=== PATIENT | male | born 1990 | race Caucasian/White ===

== ENCOUNTER 2018-10-24 15:09 | Inpatient (IN) | payer MEDICAID ==
--- NOTE | 2018-10-24 15:52 | EDPHY ---
H & P Time Seen by Provider: 10/24/18 15:19 HPI/ROS: Chief complaint. Not feeling well HPI. 28-year-old male presents with complaint of several days of not feeling well. He is moving from [place] to [place] and transferring dialysis. Patient has been receiving dialysis since just before . The patient has missed his last 4 treatments. He was previously a Wednesday, , Wednesday dialysis schedule however had he has missed these treatments including the previous Wednesday. He feels slightly nauseated. Somewhat achy, some chills. Slight shortness of breath yesterday but not today. No chest pain or abdominal pain. As he is transferring his dialysis the dialysis treatment center called him and said he needs a physical evaluation prior to them doing dialysis and recommended he come to the emergency department. He has a history of hypertension and he tells me he has been compliant with his blood pressure medication. Blood pressure normally with his medication is 170/100. Patient has a chest catheter for dialysis currently while he is awaiting his right arm AV fistula to mature ROS 10 systems were reviewed and negative with the exception of the elements mentioned in the history of present illness Past Medical/Surgical History: Hypertension, hep C, renal failure Social History: Single, daily smoker, no alcohol Smoking Status: Current every day smoker Physical Exam: General Appearance: Alert well-developed male mild distress vital signs significant for initial blood pressure 224/140 and then on repeat 211/129 Eyes: Pupils equal and round no pallor or injection. ENT, Mouth: Mucous membranes are moist. Respiratory: There are no retractions, lungs are clear to auscultation. Cardiovascular: Regular rate and rhythm. Gastrointestinal: Abdomen is soft and nontender, no masses, bowel sounds normal. Neurological: Awake and alert, sensory and motor exams grossly normal. Skin: Warm and dry, no rashes. Musculoskeletal: Neck is supple nontender. Extremities symmetrical, full range of motion. Psychiatric: Patient is oriented X 3, there is no agitation. Constitutional: Initial Vital Signs Temperature (C) 36.7 C 10/24/18 15:14 Heart Rate 96 10/24/18 15:14 Respiratory Rate 18 10/24/18 15:14 Blood Pressure 224/140 H 10/24/18 15:14 O2 Sat (%) 99 10/24/18 15:14 O2 Delivery Mode Room Air Allergies/Adverse Reactions: No Known Allergies Allergy (Unverified 10/24/18 15:12) Home Medications: Medication Instructions Recorded Amlodipine Besylate 10/24/18 Carvedilol 10/24/18 Lasix 10/24/18 Medical Decision Making - Diagnostics EKG Interpretation: EKG interpreted by me shows sinus tachycardia normal interval and axis. QRS shows LVH by voltage. Peaked T-waves are noted in the precordial leads. No arrhythmia. No significant ST elevation or depression. The rate is 105 No previous EKGs for comparison Imaging Results: Imaging Impressions Chest X-Ray 10/24/18 16:24 Impression: 1. Findings suggestive of fluid overload. 2. Central vascular catheter tip in the upper right atrium. No pneumothorax. Chest x-ray shows volume overload. No pneumonia Procedures: IV normal saline. IV hydralazine. Amlodipine 10 mg orally for blood pressure control ED Course/Re-evaluation: I consulted discussed the case with Dr. Rossy Pulliam, injection molding technician who recommended the blood pressure control meds that were given. She will see him in the hospital tonight Blood pressure on serial exams remains Around 211/134 I have sat down 3 times with the patient recommending admission for blood pressure control and dialysis. He finally does agree to admission. I consulted discussed the case with , hospitalist, who agrees to the admission Differential Diagnosis: Patient has end-stage renal disease requiring dialysis. He has missed his last for dialysis appointments. I certainly considered hyperkalemia. His bicarb is somewhat low at 17. Chest x-ray shows volume overload. Blood pressure is poorly controlled despite hydralazine and amlodipine. Plan is admission for blood pressure control and dialysis in the morning. Currently the patient has no headache or visual change or chest pain. No evidence for end-organ failure indicating hypertensive emergency - Data Points Laboratory Results: Laboratory Results 10/24/18 16:29 10/24/18 16:29 10/24/18 10/24/18 10/24/18 16:50 16:39 16:29 WBC RBC Hgb POC Hgb 10.9 gm/dL L gm/dL (13.7-17.5) Hct POC Hct 32 % L % (40-51) MCV MCH MCHC RDW Plt Count MPV Neut % (Auto) Lymph % (Auto) Stafford % (Auto) Eos % (Auto) Baso % (Auto) Nucleat RBC Rel Count Absolute Neuts (auto) Absolute Lymphs (auto) Absolute Monos (auto) Absolute Eos (auto) Absolute Basos (auto) Absolute Nucleated RBC Immature Gran % Immature Gran # POC Sodium 138 mEq/L mEq/L (135-145) Sodium 137 mEq/L mEq/L (135-145) POC Potassium 4.9 mEq/L mEq/L (3.3-5.0) Potassium 5.1 mEq/L mEq/L (3.5-5.2) POC Chloride 105 mEq/L mEq/L (97-110) Chloride 102 mEq/L mEq/L (97-110) Carbon Dioxide 17 mEq/l L mEq/l (22-31) POC Total CO2 17 mEq/L L mEq/L (22-31) Anion Gap 18 mEq/L H mEq/L (6-14) POC BUN 99 mg/dL H mg/dL (7-23) BUN 99 mg/dL H mg/dL (7-23) Creatinine 15.8 mg/dL H* mg/dL (0.7-1.3) POC Creatinine 16.7 mg/dL H* mg/dL (0.7-1.3) Estimated GFR 4 Glucose 80 mg/dL mg/dL (70-100) POC Glucose 76 mg/dL mg/dL (70-100) Calcium 8.6 mg/dL mg/dL (8.5-10.4) POC Troponin I 0.03 ng/mL ng/mL (0.00-0.08) 10/24/18 16:29 WBC 10.76 10^3/uL H 10^3/uL (3.80-9.50) RBC 3.56 10^6/uL L 10^6/uL (4.40-6.38) Hgb 10.8 g/dL L g/dL (13.7-17.5) POC Hgb Hct 31.4 % L % (40.0-51.0) POC Hct MCV 88.2 fL fL (81.5-99.8) MCH 30.3 pg pg (27.9-34.1) MCHC 34.4 g/dL g/dL (32.4-36.7) RDW 13.1 % % (11.5-15.2) Plt Count 230 10^3/uL 10^3/uL (150-400) MPV 8.6 fL L fL (8.7-11.7) Neut % (Auto) 55.8 % % (39.3-74.2) Lymph % (Auto) 21.9 % % (15.0-45.0) Stafford % (Auto) 7.8 % % (4.5-13.0) Eos % (Auto) 13.0 % H % (0.6-7.6) Baso % (Auto) 1.1 % % (0.3-1.7) Nucleat RBC Rel Count 0.0 % % (0.0-0.2) Absolute Neuts (auto) 6.00 10^3/uL 10^3/uL (1.70-6.50) Absolute Lymphs (auto) 2.36 10^3/uL 10^3/uL (1.00-3.00) Absolute Monos (auto) 0.84 10^3/uL H 10^3/uL (0.30-0.80) Absolute Eos (auto) 1.40 10^3/uL H 10^3/uL (0.03-0.40) Absolute Basos (auto) 0.12 10^3/uL H 10^3/uL (0.02-0.10) Absolute Nucleated RBC 0.00 10^3/uL 10^3/uL (0-0.01) Immature Gran % 0.4 % % (0.0-1.1) Immature Gran # 0.04 10^3/uL 10^3/uL (0.00-0.10) POC Sodium Sodium POC Potassium Potassium POC Chloride Chloride Carbon Dioxide POC Total CO2 Anion Gap POC BUN BUN Creatinine POC Creatinine Estimated GFR Glucose POC Glucose Calcium POC Troponin I Medications Given: Discontinued Medications Amlodipine Besylate (Norvasc) 10 mg PO EDNOW ONE Stop: 10/24/18 17:37 Last Admin: 10/24/18 17:53 Dose: 10 mg Hydralazine HCl (Apresoline) 10 mg IVP EDNOW ONE Stop: 10/24/18 17:37 Last Admin: 10/24/18 17:53 Dose: 10 mg Point of Care Test Results: Chemistry 10/24/18 10/24/18 16:50 16:39 POC Sodium 138 mEq/L mEq/L (135-145) POC Potassium 4.9 mEq/L mEq/L (3.3-5.0) POC Chloride 105 mEq/L mEq/L (97-110) POC Total CO2 17 mEq/L L mEq/L (22-31) POC BUN 99 mg/dL H mg/dL (7-23) POC Creatinine 16.7 mg/dL H* mg/dL (0.7-1.3) POC Glucose 76 mg/dL mg/dL (70-100) POC Troponin I 0.03 ng/mL ng/mL (0.00-0.08) ISTAT H&H 10/24/18 16:39 POC Hgb 10.9 gm/dL L gm/dL (13.7-17.5) POC Hct 32 % L % (40-51) Departure - Departure Disposition: [facility] Inpatient Acute Clinical Impression: End stage renal disease Hypertension Qualifiers: Hypertension type: renovascular hypertension Qualified Code(s): I15.0 - Renovascular hypertension Condition: Fair Referrals: NONE *PRIMARY CARE P,. [Primary Care Provider] - As per Instructions
[2018-10-24 16:39] LABS: PLATELET COUNT 230 10^3/uL (150-400)
[2018-10-24] MEDS ORDERED: hydrALAZINE 20 MG/ML VIAL IVP ONE (17:36)
[2018-10-24] MEDS ORDERED: amLODIPine BESYLATE 5 MG TAB PO ONE (17:36)
[2018-10-24] MEDS ORDERED: ONDANSETRON 4 MG/2 ML VIAL ONE (18:49)
[2018-10-24] MEDS ORDERED: LABETALOL HCL 5 MG/ML 20 ML MDV IVP ONE (18:50)
[2018-10-24] MEDS ORDERED: ONDANSETRON 4 MG/2 ML VIAL IVP ONE (18:52)
--- NOTE | 2018-10-24 18:57 | SOAPPROG ---
[facility] Progress Note Assessment/Plan: Assessment: renal consult-- see dictation # [id number] plan on HD tomorrow Work on BP control-- gradual lowering, no more than 25% in first 24 hours (pt has been off his home meds) Ok to give IV Lasix if needed overnight for increasing O2 needs as still makes urine-- he is on RA currently need to discuss with case management outpt HD arrangements in am Rossy Chapin MD [facility] pager [phone] 10/24/18 19:35 Objective: Vital Signs Temp Pulse Resp BP Pulse Ox 36.6 C 117 H 22 H 220/137 H 97 10/24/18 18:07 10/24/18 18:46 10/24/18 18:46 10/24/18 18:46 10/24/18 18:46 ICD10 Worksheet Patient Problems: Problems Problem Status Onset End stage renal disease Acute Hypertension Acute
--- NOTE | 2018-10-24 20:05 | GCON ---
[f rep st] CONSULTATION INPATIENT NEPHROLOGY CONSULTATION DATE OF CONSULTATION: 10/24/2018 REFERRING PHYSICIAN: Mansoor Asif MD REASON FOR CONSULTATION: End-stage renal disease, need for dialysis. HISTORY OF PRESENT ILLNESS: The patient is a 28-year-old man with a history of end-stage renal disea se secondary to IgA nephropathy. He presents to the emergency room complaining of several days of ge neralized malaise and nausea. He has recently been on dialysis on Tuesdays, , and Saturdays at [facility]. His last treatment was a week ago. He notes that this is due to an attempt to tr ansfer units to [facility], as he has recently moved here. Given that he had missed over a week of dialysis, the outpatient unit directed him to the emergency room. He still makes urine and denies any difficulty voiding or dysuria or hematuria. He notes some mild dyspnea with exertion but none a t rest. No chest pain. He denies any fevers. He admits that he has not been taking his blood press ure medicine regularly at home as he often gets confused. His blood pressure on arrival was 224/140. After a dose of IV hydralazine, he was in the 190s when I saw him. He reports that he has been on dialysis since July. He recently had a fistula placed about a month ago. He is unable to tell m pippa the name of his outpatient trimmer operator. He has not been evaluated for transplant up to this point . REVIEW OF SYSTEMS: GENERAL: No fevers or chills. He has had generalized malaise and poor oral inta ke. HEENT: No sore throat. PULMONARY: He has had some shortness of breath with exertion. Denies any at rest. No cough. CARDIAC: No chest pain. Does have some mild lower extremity edema. GI: S ome nausea, 1 episode of vomiting. No diarrhea. : He still makes urine. Denies any dysuria or h ematuria. SKIN: No rash. ENDOCRINE: Denies any history of diabetes, no polyuria or polydipsia. N EUROLOGIC: Some generalized weakness but no focal numbness or weakness. No loss of consciousness. HEM: No bleeding. PAST MEDICAL HISTORY: 1. End-stage renal disease secondary to IgA nephropathy. He is on dialysis as of July 2018, pre viously at [facility] on a Wednesday, , Wednesday schedule. He does have a right upper extre mity AV fistula that was placed about a month ago that has not matured. 2. Hypertension with a history of poor control. 3. History of tobacco abuse. SOCIAL HISTORY: He recently moved from [place] to [place], and he has an apartment here. He denies a ny alcohol use. He does admit to smoking cigarettes and marijuana, but denies any other drugs. FAMILY HISTORY: He is adopted and does not know any details of his history in terms of kidney diseas e. OUTPATIENT MEDICATIONS: He is not able to name the blood pressure medications or phosphorus binders that he is supposed to be taking. PHYSICAL EXAMINATION: VITAL SIGNS: His temperature is 36.6. His blood pressure is 195/126, pulse 1 02, saturating 94% on room air. GENERAL: He is in no acute distress, appears comfortable, lying in bed flat, not tachypneic on room air. HEENT: Mucous membranes are moist. There is no scleral icter us. NECK: Supple. LUNGS: Clear to auscultation bilaterally. CARDIOVASCULAR: Regular rate and rh ythm. No rub. ABDOMEN: Soft, nontender. Normal bowel sounds. No tense ascites. EXTREMITIES: Tr shauna lower extremity edema. He does have a right upper extremity fistula with good thrill and bruit, but is too small to cannulate. ACCESS: He has a right IJ tunnel dialysis catheter without a dressin g on. The exit site looks okay. SKIN: No obvious rash. He does have multiple tattoos. NEUROLOGIC : Alert and oriented x3. LABORATORY: Sodium 138, potassium 4.2, chloride 105, bicarb 17, BUN 99, creatinine 16.7, glucose 76. Troponin 0.03. White blood cell count 10.76, hemoglobin 10.9, hematocrit 32, platelets 230. IMAGING: Chest x-ray suggests some pulmonary vascular prominence concerning for edema, no consolidat ion. ASSESSMENT AND PLAN: Mr. Chin is a 28-year-old man with a history of end-stage renal disease secon madelaine to IgA nephropathy and hypertension who now presents with generalized malaise, shortness of jamarcus th and nausea after missing dialysis for least a week: 1. End-stage renal disease. Etiology appears to be IgA nephropathy and he has been on dialysis [facility] e July 2018. Unfortunately, he has missed dialysis for the past week in his attempt to transitio n to the [facility] Unit. We will admit him to arrange for dialysis in the morning. There are n o acute indications this evening. I explained to him the severity of missing dialysis and the need t o ensure we have his outpatient arrangements made before we can discharge him. We will be in touch w ith the outpatient dialysis unit in the morning to confirm this. He does make urine output still and would consider giving him a dose of Lasix if there is any concern for increasing oxygen needs; at th e time I saw him, he was on room air. 2. Hypertension urgency. His blood pressure was in the 220s when he presented to the emergency room . He does admit to missing his medications. He also likely has a volume component, given that he storey s missed dialysis for a week. We have started on some IV hydralazine and will restart his oral medic ations with a goal lowering of no more than 25% in the first 24 hours. At this point, I do not think he requires ICU admission for nicardipine drip, but we need to consider this if his blood pressure p roves difficult to control. 3. Anemia of chronic kidney disease. His hemoglobin is at goal. I will hold on erythropoietin supp lementation. 4. 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 I will check a phosphorus level with his morning labs and ensure he is on a renal diet when he is taking intake. 5. History of hepatitis C. Unclear if he has undergone any treatment or details of this. Will need to clarify this in the morning. Thank you very much for the consultation. I have discussed my [facility]. We will continue to follow up. Please do not hesitate to call with any questions or concern s. /[id number]/MODL
[2018-10-24 20:53] LABS: HEPATITIS B CORE AB IGM NEGATIVE (NEGATIVE); HEPATITIS B SURFACE ANTIGEN NEGATIVE (NEGATIVE)
[2018-10-24] MEDS ORDERED: HYDROmorphONE/DILAUDID 1 MG/ML INJ IVP PRN (21:37)
[2018-10-24] MEDS ORDERED: LORazepam 2 MG/ML INJ IVP PRN (21:37)
[2018-10-24] MEDS ORDERED: ACETAMINOPHEN 325 MG TAB PO PRN (21:37)
[2018-10-24] MEDS ORDERED: oxyCODONE IR 5 MG TAB PO PRN (21:37)
[2018-10-24] MEDS ORDERED: HYDROCODONE/APAP 5/325 TAB PO PRN (21:37)
[2018-10-24] MEDS ORDERED: ONDANSETRON DISINTEGRATING 4 MG TAB PO PRN (21:37)
[2018-10-24] MEDS ORDERED: NICOTINE POLACRILEX 2 MG GUM B PRN (21:37)
[2018-10-24] MEDS ORDERED: hydrALAZINE 20 MG/ML VIAL IVP PRN (21:42)
--- NOTE | 2018-10-24 21:49 | PDGENHP ---
History and Physical - Chief Complaint feeling ill/no HD x 4 days - History of Present Illness 28 yo M with PMH of ESRD 2/2 IgA nephropathy as well as schizoaffective disorder presenting with feeling exhausted/ill/achy all over in the setting of missing 4 scheduled dialysis sessions. Patient had been living in [place], he is a patient of the [place], and has recently moved to the [place] area. In the meantime he is looking at getting his dialysis location changed to [place], but has not done that quite yet. He generally gets Wednesday, , Wednesday HD. He states he has not been taking his BP medications regularly and that in general when he is getting dialysis as scheduled his BP runs around systolics of 170 or higher. He does make urine and has not noticed any change in his urination, no decreased output or other symptoms. He also has a history of schizoaffective disorder and notes that due to issues making an appointment to see psychiatry he has been off of medications for this for about a year. He states he has constant visual and auditory hallucinations both on and off of medications so he is not in a huge huston to get back on meds and does not remember what meds he had been on in the past. Along with this he struggles with depression but denies that being worse than usual currently. He denies any other issues including fever, chills, sob, chest pain. History Information - Allergies/Home Medication List Allergies/Adverse Reactions: No Known Allergies Allergy (Unverified 10/24/18 15:12) Home Medications: Amlodipine Besylate 10/24/18 [Last Taken Unknown] Carvedilol 10/24/18 [Last Taken Unknown] Lasix 10/24/18 [Last Taken Unknown] I have personally reviewed and updated: family history, medical history, social history, surgical history - Past Medical History ESRD (2/2 IgA nephropathy), hypertension, psychiatric history (schizoaffective do) - Surgical History Additional surgical history: AV fistula formation - Family History Additional family history: unknown - Social History Smoking Status: Current every day smoker Alcohol Use: None Drug Use: Marijuana Additional social history: recently [place] [facility] Review of Systems Review of Systems: ROS: 10pt was reviewed & negative except for what was stated in HPI & below Physical Exam Physical Exam: Temp Pulse Resp BP Pulse Ox 36.8 C 103 H 17 190/120 H 98 10/24/18 20:50 10/24/18 20:50 10/24/18 20:50 10/24/18 20:50 10/24/18 20:50 Constitutional: appears nourished, uncomfortable Eyes: PERRL, anicteric sclera Ears, Nose, Mouth, Throat: moist mucous membranes, hearing normal, poor dentition Cardiovascular: regular rate and rhythym, no murmur, rub, or gallop, No edema Respiratory: no respiratory distress, no rales or rhonchi, clear to auscultation Gastrointestinal: normoactive bowel sounds, soft, non-tender abdomen Genitourinary: no bladder tenderness Skin: warm, normal color Musculoskeletal: full muscle strength Neurologic: AAOx3 Psychiatric: interacting appropriately, not anxious, not encephalopathic Lab Data & Imaging Review 10/24/18 16:29 10/24/18 16:29 WBC 10.76 10^3/uL (3.80-9.50) H 10/24/18 16:29 RBC 3.56 10^6/uL (4.40-6.38) L 10/24/18 16:29 Hgb 10.8 g/dL (13.7-17.5) L 10/24/18 16:29 POC Hgb 10.9 gm/dL (13.7-17.5) L 10/24/18 16:39 Hct 31.4 % (40.0-51.0) L 10/24/18 16:29 POC Hct 32 % (40-51) L 10/24/18 16:39 MCV 88.2 fL (81.5-99.8) 10/24/18 16:29 MCH 30.3 pg (27.9-34.1) 10/24/18 16:29 MCHC 34.4 g/dL (32.4-36.7) 10/24/18 16:29 RDW 13.1 % (11.5-15.2) 10/24/18 16:29 Plt Count 230 10^3/uL (150-400) 10/24/18 16:29 MPV 8.6 fL (8.7-11.7) L 10/24/18 16:29 Neut % (Auto) 55.8 % (39.3-74.2) 10/24/18 16: Lymph % (Auto) 21.9 % (15.0-45.0) 10/24/18 16: Izard % (Auto) 7.8 % (4.5-13.0) 10/24/18 16: Eos % (Auto) 13.0 % (0.6-7.6) H 10/24/18 16: Baso % (Auto) 1.1 % (0.3-1.7) 10/24/18 16: Nucleat RBC Rel Count 0.0 % (0.0-0.2) 10/24/18 16: Absolute Neuts (auto) 6.00 10^3/uL (1.70-6.50) 10/24/18 16: Absolute Lymphs (auto) 2.36 10^3/uL (1.00-3.00) 10/24/18 16: Absolute Monos (auto) 0.84 10^3/uL (0.30-0.80) H 10/24/18 16:29 Absolute Eos (auto) 1.40 10^3/uL (0.03-0.40) H 10/24/18 16: Absolute Basos (auto) 0.12 10^3/uL (0.02-0.10) H 10/24/18 16: Absolute Nucleated RBC 0.00 10^3/uL (0-0.01) 10/24/18 16: Immature Gran % 0.4 % (0.0-1.1) 10/24/18 16: Immature Gran # 0.04 10^3/uL (0.00-0.10) 10/24/18 16:29 POC Sodium 138 mEq/L (135-145) 10/24/18 16:39 Sodium 137 mEq/L (135-145) 10/24/18 16:29 POC Potassium 4.9 mEq/L (3.3-5.0) 10/24/18 16:39 Potassium 5.1 mEq/L (3.5-5.2) 10/24/18 16:29 POC Chloride 105 mEq/L (97-110) 10/24/18 16: Chloride 102 mEq/L (97-110) 10/24/18 16:29 Carbon Dioxide 17 mEq/l (22-31) L 10/24/18 16:29 POC Total CO2 17 mEq/L (22-31) L 10/24/18 16:39 Anion Gap 18 mEq/L (6-14) H 10/24/18 16:29 POC BUN 99 mg/dL (7-23) H 10/24/18 16:39 BUN 99 mg/dL (7-23) H 10/24/18 16:29 Creatinine 15.8 mg/dL (0.7-1.3) H* 10/24/18 16:29 POC Creatinine 16.7 mg/dL (0.7-1.3) H* 10/24/18 16:39 Estimated GFR 4 10/24/18 16:29 Glucose 80 mg/dL (70-100) 10/24/18 16:29 POC Glucose 76 mg/dL (70-100) 10/24/18 16:39 Calcium 8.6 mg/dL (8.5-10.4) 10/24/18 16:29 POC Troponin I 0.03 ng/mL (0.00-0.08) 10/24/18 16:50 Hep Bs Antigen NEGATIVE (NEGATIVE) 10/24/18 16:29 Hep B Core IgM Ab NEGATIVE (NEGATIVE) 10/24/18 16:29 Visualized and Interpreted Chest x-ray results: Yes Chest X-Ray results: other (suggestsive of fluid overload) Visualized and Interpreted EKG results: Yes EKG additional interpertation: sinus tachycardia Assessment & Plan Assessment: End stage renal disease (Acute) Hypertension (Acute) 28 yo M with PMH of ESRD 2/2 IgA nephropathy on chronic HD presenting with uncontrolled HTN, generalized malaise and aches and pains after missing HD x 4 # ESRD: patient missed HD x 4 due to moving, does have some mild lower extermity edema and e/o fluid overload on CXR but not hypoxic and electrolytes are not concerning currently. Renal consulted, plan is for HD in the am. # Hypertensive urgency: in patient with chronically uncontrolled htn, he states he is never below systolics of 170, arrived with BP 224/140 without e/o end organ dysfunction related to this. Given hydralazine and labetalol per renal recs and has trended slightly down, will have a goal of BP 180-190 overnight. Will likely improve more with HD, will resume home meds when confirmed # schizoaffective disorder: patient notes he has been off of medications for a year and although he has chronic hallucinations and issues with depression but does not feel he is in crisis around it and was not sure if he would be willing to talk to our psychiatrist but will consider. Looks like he may have some EPS sxs related to prior antipsychotic use with continued mouth movements noted on exam. # tobacco use: nicotine patch, nicotine gum # IP status, will likely require > 48 hours stay for eval/mgmt of above Patient new to my care. Old records reviewed and summarized as above. Care plan reviewed with ED doctor including plans for renal consult.
[2018-10-24] MEDS: NICOTINE 21 MG/24 HR PATCH TD SCH (22:03)
--- NOTE | 2018-10-24 23:26 | CPEKG ---
Test Reason : OPEN Blood Pressure : / mmHG Vent. Rate : 105 BPM Atrial Rate : 105 BPM P-R Int : 159 ms QRS Dur : 096 ms QT Int : 359 ms P-R-T Axes : 044 021 031 degrees QTc Int : 475 ms Sinus tachycardia Probable left atrial enlargement Borderline prolonged QT interval Confirmed by Mansoor Asif ([id number]) on 10/24/2018 11:26:13 PM Referred By: Mansoor Asif Confirmed By:Mansoor Asif
[2018-10-25] MEDS: ONDANSETRON 4 MG/2 ML VIAL IVP PRN ×2 (00:05→15:36)
[2018-10-25] MEDS: PROMETHAZINE HCL 25 MG/ML INJ IVP PRN ×2 (00:37→08:49)
[2018-10-25] MEDS: LORazepam 0.5 MG TAB PO PRN (02:05)
[2018-10-25 04:30] LABS: PLATELET COUNT 247 10^3/uL (150-400)
--- NOTE | 2018-10-25 10:22 | SOAPPROG ---
SOAP Progress Note Assessment/Plan: Assessment: Pt seen on dialysis. He is stable, and feeling better. 1. Severe HTN I called his [place] dialysis unit. His BP's typically ran around 175/120. Thus , his current BP's are about baseline. His BP med regimen there was amlodipine 10mg daily, and carvedilol 25 mg daily. Will continue amlodipine, and add in carvedilol at half dose. He denies CP, SOB. He states his vision is ok, and headache better. 2. ESRD HD today. He has MWF spot tomorrow. Will place on schedule here tomorrow. 3. Social CM to review. 4. Anemia At goal for ESRD Plan: 10/25/18 10:19 10/25/18 10:22 Subjective: Doing ok Objective: Vital Signs Temp Pulse Resp BP Pulse Ox 36.8 C 110 H 19 198/126 H 97 10/25/18 03:54 10/25/18 03:54 10/25/18 03:54 10/25/18 05:06 10/25/18 03:54 Laboratory Results 10/25/18 03:40 10/25/18 03:40 10/24/18 10/25/18 10/26/18 05:59 05:59 05:59 Intake Total 700 Output Total 450 Balance 250 Physical Exam - Physical Exam General Appearance: no apparent distress Neck: other (Cath exit site ok) Respiratory: lungs clear Cardiac/Chest: regular rate, rhythm Extremities: normal inspection Neuro/Psych: oriented x 3 ICD10 Worksheet Patient Problems: Problems Problem Status Onset Hypertension Acute End stage renal disease Acute
[2018-10-25] MEDS ORDERED: HEPARIN 50,000 UNIT/10 ML VIAL ONE (10:30)
[2018-10-25] MEDS: NICOTINE 21 MG/24 HR PATCH TD SCH (11:39)
[2018-10-25] MEDS: CARVEDILOL 25 MG TAB PO SCH ×2 (11:39→17:56)
--- NOTE | 2018-10-25 14:36 | ASMTCMCOM ---
CM Note CM Note Notes: Pt is a 28 y/o man admitted for hypertension. CM spoke to Dr. Warner this AM and he reports that pt is already established at [facility]. [facility] is closed today. [facility] CM to follow up tomorrow. Date Signed: 10/25/2018 02:35 PM Electronically Signed By:TRAY Villar
--- NOTE | 2018-10-25 15:26 | HOSPPROG ---
Hospitalist Progress Note Assessment/Plan: DIAGNOSES: * Uremia from not receiving dialysis for 1 week * Myalgias * Nausea * Metabolic acidosis * End-stage renal disease * Chronic anemia of renal disease * Chronic poorly controlled hypertension with severe hypertension here, may be close to his baseline at present * Does make some urine * Has had hepatitis B vaccines with positive titer There had been a number of communications back and forth regarding his blood pressure medicines. Dr. Warner is note mentions that he has been using amlodipine and carvedilol, and it sounds like this was from communication to his outpatient dialysis unit. We now have communication apparently from [place] that he is also taking Lasix and losartan. I wonder if [facility] and which medicines he was really taking. Will try and review again with the patient and with Dr. Warner. The patient does tell me that he misses a lot of medication doses. I mention that some of his medicines are more than once daily, and he does admit that this makes it harder for him to remember to take his medicines. Wonder if he might do better with all daily medicines. ? Would minoxidil be helpful? PLANS: * Will start his Lasix and losartan at doses per [facility] pharmacy at this point, review with nephrology * Dialysis again tomorrow * Antiemetic As he will need to stay here and get dialyzed again tomorrow, and with uncontrolled nausea at this point requiring medications here, will change to inpatient. SUBJECTIVE: Still having quite a bit of nausea needing IV antiemetic intermittently Had fair bit of nausea during dialysis otherwise tolerated that okay Less myalgias so far today OBJECTIVE Vitals reviewed: Remains quite hypertensive vital signs otherwise negative with no fever Engineering Laboratory Technician, my review: Sinus Exam: alert oriented, looks uncomfortable and tired skin warm dry color ok resps not labored lungs clear BSs heart regular abd soft nondistended nontender, bowel sounds present limbs warm, no edema iv site ok Lab data: White blood cell count remains elevated, hemoglobin a bit better after fluid removal CO2 14 on chemistry Creatinine remains high at 16 Electrolytes okay Hepatitis antibody titers positive, antigen test negative Objective: Vital Signs Temp Pulse Resp BP Pulse Ox 36.6 C 98 18 164/99 H 92 10/25/18 15:02 10/25/18 15:02 10/25/18 15:02 10/25/18 15:02 10/25/18 15:02 Laboratory Results 10/25/18 03:40 10/25/18 03:40 10/24/18 10/25/18 10/26/18 06:59 06:59 06:59 Intake Total 700 Output Total 450 Balance 250 - Time Spent With Patient Time Spent with Patient: greater than 35 minutes Time Spent with Patient: Greater than 35 minutes spent on this patients care, greater than 50% of time spent counseling, educating, and coordinating care regarding the above mentioned plan. ICD10 Worksheet Patient Problems: Problems Problem Status Onset End stage renal disease Acute Hypertension Acute
[2018-10-25] MEDS: LOSARTAN POTASSIUM 25 MG TAB PO SCH (15:36)
[2018-10-25] MEDS: FUROSEMIDE 80 MG TAB PO SCH (16:05)
--- NOTE | 2018-10-25 20:41 | PDMN ---
Medical Necessity Medical necessity: Pt meets IP criteria per MD & MCG M-197; est los >2 mn for eval/tx of hypertensive urgency (BP 224/140) & ESRD w/4 missed HD sessions; admit for further monitoring, Renal consult, HD & med management; per H&P & order 10/24/18
[2018-10-25] MEDS ORDERED: FUROSEMIDE 40 MG TAB PO SCH (21:00)
[2018-10-26] MEDS: LORazepam 0.5 MG TAB PO PRN (01:31)
[2018-10-26] MEDS: LOSARTAN POTASSIUM 25 MG TAB PO SCH (09:16)
[2018-10-26] MEDS: NICOTINE 21 MG/24 HR PATCH TD SCH (09:16)
[2018-10-26] MEDS: FUROSEMIDE 80 MG TAB PO SCH ×2 (09:16→15:32)
[2018-10-26] MEDS: CARVEDILOL 25 MG TAB PO SCH ×2 (09:16→18:37)
--- NOTE | 2018-10-26 10:13 | SOAPPROG ---
[facility] Progress Note Assessment/Plan: Assessment: ESRD, HD today HTN, better this morning developing AVF, should be able to use soon Plan: HD today, get on MWF schedule has dialysis spot at [facility], moving here permanently continue current therapies 10/26/18 10:10 Subjective: spiritbakari riley has a hard time sleeping with his AVF buzzing no cp sob nausea or vomiting spiritbakari riley denies pain no anorexia Objective: Vital Signs Temp Pulse Resp BP Pulse Ox 36.8 C 84 15 146/99 H 92 10/26/18 08:00 10/26/18 08:00 10/26/18 08:00 10/26/18 08:00 10/26/18 08:00 Laboratory Results 10/25/18 03:40 10/26/18 03:48 10/25/18 10/26/18 10/27/18 05:59 05:59 05:59 Intake Total 600 610 Output Total 450 Balance 150 610 Physical Exam - Physical Exam General Appearance: alert Neck: normal inspection, other (R IJ HD cath in place) Respiratory: No rhonchi, No wheezing Cardiac/Chest: regular rate, rhythm, systolic murmur, No edema Abdomen: normal bowel sounds, non-tender, soft Skin: warm/dry Extremities: No swelling Neuro/Psych: alert, normal mood/affect, oriented x 3 ICD10 Worksheet Patient Problems: Problems Problem Status Onset End stage renal disease Acute Hypertension Acute
[2018-10-26 15:12] VITALS: BP 143/88
--- NOTE | 2018-10-26 15:50 | PDDCSUM ---
Discharge Summary Discharge Summary: DISCHARGE DIAGNOSES: * Acute uremia * Myalgias due to above * Nausea due to above * Metabolic acidosis * End-stage renal disease on chronic dialysis; * Chronic anemia of renal disease * Chronic poorly controlled hypertension * Evidence of previous hepatitis B vaccine CONSULTANTS: Dr. Rossy Pulliam PROCEDURES: Hemodialysis HOSPITAL COURSE SUMMARY: This patient who has chronic end-stage dialysis dependent renal failure recently moved from [facility] to [place]. However, apparently there was some administrative difficulties in getting his dialysis arranged [facility]. He therefore went for just over a week without any dialysis. He comes into the hospital at this time with symptoms of uremia including decreased alertness, nausea, fatigue, myalgias. He has not had any shortness of breath. He has no fevers. There are no cardiac symptoms. He has a pre-existing dialysis catheter at the rate subclavian that is in proper position in good condition. He has a recently placed fistula in his right upper arm that is not mature but looking good at this time. He was dialyzed here and this did lead to significant improvement in his symptoms. He has not had any problems with hyperkalemia. He is eating well now does not have any more nausea or myalgias. He is tolerating dialysis here well. Notably his blood pressures for fairly high on arrival here and as we looked back to his records from the outpatient dialysis unit the patient has had quite a bit of trouble with severe hypertension and great difficulty controlling it. We did add Aldactone to his medicine list here, and between that and the dialysis his blood pressures are greatly improved although not quite yet in the normal range. At this point the patient is stable for discharge to home. He is scheduled to begin dialysis at the [facility] unit in 2 days PENDING TEST RESULTS: None MEDICATION CHANGES: Addition of losartan for blood pressure FOLLOW-UP PLAN: He will be dialyzed at [facility] 2 days from now, and will continue follow-up with the nurses, techs, and advertising teacher there Greater than 35 minutes bedside and care coordination time today
[2018-10-26] MEDS ORDERED: HEPARIN 50,000 UNIT/10 ML VIAL ONE (16:00)
--- NOTE | 2018-10-26 16:02 | ASMTCMCOM ---
CM Note CM Note Notes: CM spoke to HORTENCIA Newman. CM spoke to Krysta at [facility] and confirmed that pt has a chair time of 12:30pm [facility]. Pt should not have any d/c needs. CM available for changes. Plan: Independent Date Signed: 10/26/2018 04:01 PM Electronically Signed By:TRAY Villar
== END 2018-10-26 19:35 | disposition home or self-care (01) | DRG 470 ==
LOC: F2W 19:57 → OBSVTOIN 21:43
PROVIDERS: ADMIT Internal Medicine; ATTEND Internal Medicine
PROC: 5A1D70Z Performance of Urinary Filtration, Intermittent, Less than 6 Hours Per Day (ICD-10-PCS; principal; 2018-10-24)
DX: N18.6 End stage renal disease (principal); I16.0 Hypertensive urgency; D63.1 Anemia in chronic kidney disease; N02.8 Recurrent and persistent hematuria with other morphologic changes; F25.9 Schizoaffective disorder, unspecified; B19.20 Unspecified viral hepatitis C without hepatic coma; F17.200 Nicotine dependence, unspecified, uncomplicated; Z99.2 Dependence on renal dialysis
CPT/HCPCS: 82435-PO; 82565-PO; 82947-PO; 84132-PO; 84295-PO; 84484-ER; 84520-PO; 85014-ER; 86705-90; 96374; J0360; J1170; J1644; J2405; J2550